=== PATIENT | female | born 1965 | race Caucasian/White ===

== ENCOUNTER → 2023-10-14 14:04 | Outpatient (REF) | payer BC, SELFPAY | LOC: WDC 14:04 | PROVIDERS: ATTENDING PHYSICIAN Obstetrics & Gynecology; FAMILY PHYSICIAN Physician Assistant Medical | DX: Z12.31 Encounter for screening mammogram for malignant neoplasm of breast (principal) | CPT/HCPCS: 77063; 77067 ==

== ENCOUNTER → 2024-10-17 13:37 | Outpatient (REF) | payer BC, SELFPAY | LOC: WDC 13:37 | PROVIDERS: ATTENDING PHYSICIAN Obstetrics & Gynecology; FAMILY PHYSICIAN Physician Assistant Medical | DX: Z12.31 Encounter for screening mammogram for malignant neoplasm of breast (principal) | CPT/HCPCS: 77063; 77067 ==

== ENCOUNTER 2025-01-11 14:25 | Emergency (ER) | payer BC, SELFPAY ==
--- NOTE | 2025-01-11 16:37 | ED.GENMED ---
History of Present Illness
General
Chief Complaint: Musculo-Skeletal Complaint
Time Seen by Provider: 01/11/25 16:35
History of Present Illness
History of Present Illness:
59-year-old female with past medical history of GERD and hypothyroidism status post cortisone injection to her right knee yesterday presenting to the ER for further evaluation of increased pain to the right knee following the procedure. While
waiting for evaluation in the ER patient received a call from her orthopedic physician who prescribed the patient a Medrol Dosepak and additional pain relief medication, patient stating she no longer wishes to remain in the emergency department and
feels comfortable being discharged home and will follow-up with her orthopedic provider as an outpatient. She is denying any fevers, chills, rigors. She does note some increased pain with ambulation and range of motion of the right knee.
Past History
Past History
ED Past Medical History: GERD and Hypothyroidism
ED Past Surgical History: Cholecystectomy and Other
Social History
Tobacco: Non-smoker
Alcohol: None
Drug: None
Personal:
Living: with family
Employment: Employed
Review of Systems
Review of Systems
All Other Systems: ROS reviewed and negative except as documented in HPI and ROS
Phy Exam
Physical Exam
Physical Exam:
GENERAL: Alert , in no apparent distress
EYE: conjunctiva clear
Head: Normocephalic atraumatic
NECK: Supple,
ENT: mmm.
LUNGS: no acute respiratory distress
NEUROLOGICAL: Alert and oriented
SKIN: Warm and dry, skin intact.
MUSCULOSKELETAL: well perfused. No overlying erythema of the right knee
PSYCH: Normal and appropriate interaction.
Scores
Heart Failure Risk
Heart Failure Risk Score: Not Applicable
Heart Score for Chest Pain Patients
STEMI patient?: Not applicable
Withdrawal Assessment of Alcohol
Withdrawal Assessment Completed?: Not applicable
Course
Vital Signs
Initial and Last Documented VS:
Initial Vital Signs
Temp Resp
98.3 F 18
01/11/25 14:27 01/11/25 14:27
Last Documented Vital Signs
Temp Pulse Resp BP Pulse Ox
98.3 F 77 16 132/79 100
01/11/25 14:27 01/11/25 16:48 01/11/25 16:48 01/11/25 16:48 01/11/25 16:48
MDM/Problems Addressed
Differential Diagnosis Includes:
Arthritis
Septic arthritis
Joint effusion
MDM/Problems Addressed:
59-year-old female presenting the ER for evaluation of increased pain to the right knee following a cortisone injection done yesterday. Received a callback from her orthopedic physician while in the ER. Patient ultimately wishing to be discharged
home and does not wish for any further workup to be completed. Medication was sent to her pharmacy by the orthopedic team. Patient otherwise stable for discharge. Discussed return precautions.
*Pulse Oximetry
SaO2: 100
Oxygen Mode of Delivery: Room air
Patient hypoxic: no
*Critical Care Note
Total Time (30-74mins, 75-104mins- exclusive of procedures): Not Applicable
ED Attending Note
-
Portions of this chart may have been created with voice recognition software.� Occasional wrong word or��sound alike� substitutions may have occurred due to the inherent limitations of voice recognition software.
Discharge Plan
Departure
Patient Disposition: Home (Routine Discharge)
Date of Disposition: 01/11/25
Time of Disposition: 16:37
Patient with high blood pressure during this ER visit?: No
Discharge Problem:
Knee pain, right
Instructions: Knee Pain (DC)
Interventions
Interventions:
*Risk Screen - Suicide Last Done: 01/11/25 16:48
*General Assessment Last Done: 01/11/25 16:48
*Neglect/Abuse Screening Last Done: 01/11/25 16:48
*ED- Fall Risk Assessment Last Done: 01/11/25 16:48
*Nursing Disposition Last Done: 01/11/25 16:50
ED-Musculoskeletal Assessment Last Done: 01/11/25 16:48
Discharge Date and Time
Discharge Date/Time: 01/11/25 16:51
Print Language: BENGALI
[2025-01-11 16:48] VITALS: BP 132/79
== END 2025-01-11 16:51 | disposition home or self-care (01) ==
LOC: EMR 14:25
PROVIDERS: EMERGENCY PHYSICIAN Emergency Medicine; FAMILY PHYSICIAN Physician Assistant Medical
DX: M25.561 Pain in right knee (principal); E03.9 Hypothyroidism, unspecified; K21.9 Gastro-esophageal reflux disease without esophagitis
CPT/HCPCS: 99281